=== PATIENT | male | born 1975 | race Caucasian/White ===

== ENCOUNTER 2018-03-02 10:05 | Emergency (ER) | payer OTHER ==
[~2018-03-02] VITALS: Ht 175.3 cm; Wt 94.7 kg
[2018-03-02 10:11] VITALS: TEMP 36.9; Ht 175.3 cm; Wt 94.7 kg
[2018-03-02] MEDS ORDERED: MEDMARIJ INH (10:42)
[2018-03-02] MEDS ORDERED: KETOROLAC TROMETHAMINE 30 MG/ML VIAL IV STA (10:49)
[2018-03-02] MEDS ORDERED: SODIUM CHLORIDE 0.9% 1000ML 1,000 ML IV STA (10:49)
[2018-03-02] MEDS ORDERED: ONDANSETRON INJ 2 MG/ML 2 ML VIAL IV STA (10:49)
--- NOTE | 2018-03-02 11:06 | DIAGNOSTIC IMAGING REPORT ---
CHEST ONE VIEW PORTABLE CLINICAL HISTORY: Abdominal pain. COMPARISON STUDY: Chest radiograph December 27, 2014. FINDINGS: A round metallic density projects over the left hemithorax. This was present on previous exams. No pneumothorax or pleural effusion is noted. There is no evidence for pulmonary edema. Cardiac size is normal. Mediastinal contours are normal. There is no lucency under the hemidiaphragms to suggest pneumoperitoneum. IMPRESSION: No acute cardiopulmonary findings. Electronically signed by: Renato Ramírez M.D. 03/02/2018 11:05 AM Dictated Date/Time: 03/02/2018 11:04 AM
[2018-03-02 11:07] LABS: BASO % 0.3 %; BASO ABS # 0.04 K/uL (0-0.2); EOS % 0.6 %; EOS ABS # 0.09 K/uL (0-0.5); HEMATOCRIT 44.6 % (42-52); HEMOGLOBIN 15.5 g/dL (14.0-18.0); IG# 0.04 K/uL (0.00-0.02); LYMPH % 16.5 %; LYMPH ABS # 2.31 K/uL (1.2-3.4); MEAN CELL VOLUME 87.8 fL (80-100); MEAN CORPUSCULAR HEMOGLOBIN 30.5 pg (25-34); MEAN CORPUSCULAR HGB CONC 34.8 g/dl (32-36); MEAN PLATELET VOLUME 10.3 fL (7.4-10.4); MONO % 9.6 %; MONO ABS # 1.34 K/uL (0.11-0.59); NEUT % 72.7 %; NEUT ABS # 10.15 K/uL (1.4-6.5); PLATELET COUNT 194 K/uL (130-400); RED CELL DISTRIBUTION WIDTH CV 13.5 % (11.5-14.5); RED CELL DISTRIBUTION WIDTH SD 44.2 fL (36.4-46.3); WHITE BLOOD COUNT 13.97 K/uL (4.8-10.8)
[2018-03-02 11:15] LABS: PTT PATIENT 26.4 SECONDS (21.0-31.0)
[2018-03-02 11:21] LABS: CALCIUM 9.2 mg/dl (8.5-10.1); CREATININE 0.87 mg/dl (0.60-1.40); POTASSIUM 3.9 mmol/L (3.5-5.1)
[2018-03-02 11:23] LABS: TOTAL PROTEIN 8.4 gm/dl (6.4-8.2)
--- NOTE | 2018-03-02 11:29 | DIAGNOSTIC IMAGING REPORT ---
ABD/PELVIS WITHOUT FOR STONE HISTORY: 42 years-old Male lower abd pain and inguinal pain acute lower abdominal pain with history of prior right-sided hernia repair COMPARISON: CT abdomen and pelvis 11/11/2014 TECHNIQUE: Multiple axial CT images of the abdomen and pelvis were obtained without the use of IV contrast. A dose lowering technique was used consistent with the principals of LENA. FINDINGS: Minimal dependent subsegmental bibasilar atelectasis. 3 mm solid nodule of the lateral basal segment left lower lobe, unchanged suggesting benign etiology with additional unchanged pleural-based 2 mm nodule seen on image 32 series 3. No pneumatosis or pneumoperitoneum. Imaged inferior cardiac chambers are unremarkable. Hepatomegaly with suggested hepatic steatosis redemonstrated. The gallbladder, spleen, pancreas and adrenal glands are within normal limits. Kidneys, ureters and bladder are unremarkable. Mild atherosclerosis of the aorta without aneurysm. No bulky adenopathy. No small bowel obstruction. Moderate wall thickening of the proximal sigmoid colon with pericolonic inflammatory stranding and trace free pelvic fluid is noted with inflammatory changes centered about an inflamed diverticulum seen on image 349 series 3. No definite evidence of perforation or abscess. There is thickening of the adjacent peritoneal reflection. The appendix appears normal. Prior ventral abdominal wall herniorrhaphy. There are multiple small fat filled supraumbilical hernias about the area of prior repair, largest of which measures 2.2 cm on the right, image 224 series 3. The bones appear intact. Multilevel degenerative changes about the spine. IMPRESSION: 1. Findings compatible with acute uncomplicated sigmoid diverticulitis without evidence of perforation or drainable fluid collection. 2. No bowel obstruction. Normal appendix. 3. Multiple small fat filled supraumbilical ventral abdominal wall hernias The above report was generated using voice recognition software. It may contain grammatical, syntax or spelling errors. Electronically signed by: Neeraj Tanner M.D. 03/02/2018 11:28 AM Dictated Date/Time: 03/02/2018 11:20 AM
--- NOTE | 2018-03-02 12:11 | DIAGNOSTIC IMAGING REPORT ---
SCROTAL ULTRASOUND CLINICAL HISTORY: Left testicular pain. COMPARISON STUDY: Scrotal ultrasound November 11, 2014. TECHNIQUE: Grayscale and color and duplex Doppler sonography of the scrotum was performed. FINDINGS: The right testis measures 5.3 x 2.3 x 3 cm and the left measures 4.9 x 2.1 x 3.2 cm. There is color flow within each testis. There is no evidence for epididymitis. A few tiny right epididymal cysts are noted. IMPRESSION: 1. No evidence for testicular torsion. No testicular mass. 2. No evidence for epididymitis. Electronically signed by: Renato Ramírez M.D. 03/02/2018 12:10 PM Dictated Date/Time: 03/02/2018 12:04 PM
[2018-03-02] MEDS ORDERED: MoRPHine SULFATE 4 MG/ML 1 ML CARP\\VIAL IV STA (12:19)
[2018-03-02] MEDS ORDERED: CIPROFLOXACIN 500 MG TAB PO STA (12:20)
[2018-03-02] MEDS ORDERED: METRONIDAZOLE 250 MG TAB PO STA (12:20)
[2018-03-02] MEDS ORDERED: CIPR-255 PO (12:55)
[2018-03-02] MEDS ORDERED: METR-163 PO (12:55)
--- NOTE | 2018-03-02 12:56 | EMERGENCY ROOM VISIT NOTE ---
History Report prepared by Timo: Lexie Glover Under the Supervision of: Dr. Jeffery Ryan D.O. First contact with patient: 10:35 Chief Complaint: PENIS PAIN Stated Complaint: PAIN IN THE NUTS Nursing Triage Summary: pt reports pelvic pain radiating into testicles and groin. Ongoing since last night. denies injury or trauma. pt reports blood in urine, "I thought maybe I had a kidney stone" History of Present Illness The patient is a 42 year old male who presents to the Emergency Room with complaints of worsening penis plane starting 12 hours ago. The patient states that he believes that he may have a kidney stone because his coworker just had one and it sounds like it feels the same as he described it. He states that the pain comes down his pelvis and into his scrotum. He describes the pain as an aching. He reports that the pain is worse with walking, standing, movement, and touching his testicles. The patient complains of nausea and vomiting from the pain. The patient denies any swelling and any bulges in his pelvic/groin region. The patient notes that his job does require heavy lifting and he has a history of a hernia repair. He reports that sometimes his testicle intermittently "ties up," but comes back down. Source of History: patient Onset: 12 hours ago Position: other (penis) Quality: ache Timing: worsening Modifying Factors (Worsening): movement, other (walking, standing, touching his testicles) Associated Symptoms: + nausea, + vomiting Note: The patient denies any swelling and any bulges in his pelvic/groin region. Review of Systems See HPI for pertinent positives & negatives. A total of 10 systems reviewed and were otherwise negative. Past Medical & Surgical Medical Problems: (1) No Known Active Medical Problems (2) Right hip pain Surgical Problems: (1) Elbow Joint Replacement Status (2) H/O hernia repair Family History Cancer Lung disease Seizures Social History Smoking Status: Current Every Day Smoker Alcohol Use: none Drug Use: none Marital Status: Housing Status: lives with family Occupation Status: employed Current/Historical Medications Scheduled Ciprofloxacin Hcl (Cipro), 500 MG PO BID Marijuana, Home Medication (Marijuana, Home Medication), Unknown Dose INH UD Metronidazole (Flagyl), 500 MG PO TID Allergies Coded Allergies: NO KNOWN DRUG ALLERGIES (Unverified Allergy, Unknown, ., 03/02/18) Oxycodone (Verified Adverse Reaction, Intermediate, DOES NOT WORK, 07/04/15 ) Physical Exam Vital Signs Date Time Temp Pulse Resp B/P (MAP) Pulse Ox O2 Delivery O2 Flow Rate FiO2 03/02/18 13:17 72 18 113/68 97 03/02/18 12:35 76 18 118/64 97 Room Air 03/02/18 12:08 72 18 125/69 98 Room Air 03/02/18 10:11 36.9 80 20 136/82 94 Room Air Physical Exam CONSTITUTIONAL/VITAL SIGNS: Reviewed / noted above. GENERAL: Non-toxic in appearance. INTEGUMENTARY: Warm, dry, and [place]. HEAD: Normocephalic. EYES: without scleral icterus or trauma. ENT/OROPHARYNX: clear and moist. LYMPHADENOPATHY/NECK: Is supple without lymphadenopathy or meningismus. RESPIRATORY: Lungs clear and equal. CARDIOVASCULAR: Regular rate and rhythm. GI/ABDOMEN: Soft. No organomegaly or pulsatile mass. No rebound or guarding. Normal bowel sounds. Bilateral lower abdominal and inguinal tenderness. GROIN: Mild discomfort of the bilateral scrotum, left greater than right. No palpable hernias. EXTREMITIES: Warm and well perfused. BACK: No CVA tenderness. NEUROLOGICAL: Intact without focal deficits. PSYCHIATRIC: normal affect. MUSCULOSKELETAL: Normally developed with good muscle tone. Medical Decision & Procedures ER Provider Diagnostic Interpretation: Radiology results as stated below per my review and radiologist interpretation: CHEST ONE VIEW PORTABLE CLINICAL HISTORY: Abdominal pain. COMPARISON STUDY: Chest radiograph December 27, 2014. FINDINGS: A round metallic density projects over the left hemithorax. This was present on previous exams. No pneumothorax or pleural effusion is noted. There is no evidence for pulmonary edema. Cardiac size is normal. Mediastinal contours are normal. There is no lucency under the hemidiaphragms to suggest pneumoperitoneum. IMPRESSION: No acute cardiopulmonary findings. Electronically signed by: Renato Ramírez M.D. 03/02/2018 11:05 AM Dictated Date/Time: 03/02/2018 11:04 AM ABD/PELVIS WITHOUT FOR STONE HISTORY: 42 years-old Male lower abd pain and inguinal pain acute lower abdominal pain with history of prior right-sided hernia repair COMPARISON: CT abdomen and pelvis 11/11/2014 TECHNIQUE: Multiple axial CT images of the abdomen and pelvis were obtained without the use of IV contrast. A dose lowering technique was used consistent with the principals of LENA. FINDINGS: Minimal dependent subsegmental bibasilar atelectasis. 3 mm solid nodule of the lateral basal segment left lower lobe, unchanged suggesting benign etiology with additional unchanged pleural-based 2 mm nodule seen on image 32 series 3. No pneumatosis or pneumoperitoneum. Imaged inferior cardiac chambers are unremarkable. Hepatomegaly with suggested hepatic steatosis redemonstrated. The gallbladder, spleen, pancreas and adrenal glands are within normal limits. Kidneys, ureters and bladder are unremarkable. Mild atherosclerosis of the aorta without aneurysm. No bulky adenopathy. No small bowel obstruction. Moderate wall thickening of the proximal sigmoid colon with pericolonic inflammatory stranding and trace free pelvic fluid is noted with inflammatory changes centered about an inflamed diverticulum seen on image 349 series 3. No definite evidence of perforation or abscess. There is thickening of the adjacent peritoneal reflection. The appendix appears normal. Prior ventral abdominal wall herniorrhaphy. There are multiple small fat filled supraumbilical hernias about the area of prior repair, largest of which measures 2.2 cm on the right, image 224 series 3. The bones appear intact. Multilevel degenerative changes about the spine. IMPRESSION: 1. Findings compatible with acute uncomplicated sigmoid diverticulitis without evidence of perforation or drainable fluid collection. 2. No bowel obstruction. Normal appendix. 3. Multiple small fat filled supraumbilical ventral abdominal wall hernias The above report was generated using voice recognition software. It may contain grammatical, syntax or spelling errors. Electronically signed by: Neeraj Tanner M.D. 03/02/2018 11:28 AM Dictated Date/Time: 03/02/2018 11:20 AM SCROTAL ULTRASOUND CLINICAL HISTORY: Left testicular pain. COMPARISON STUDY: Scrotal ultrasound November 11, 2014. TECHNIQUE: Grayscale and color and duplex Doppler sonography of the scrotum was performed. FINDINGS: The right testis measures 5.3 x 2.3 x 3 cm and the left measures 4.9 x 2.1 x 3.2 cm. There is color flow within each testis. There is no evidence for epididymitis. A few tiny right epididymal cysts are noted. IMPRESSION: 1. No evidence for testicular torsion. No testicular mass. 2. No evidence for epididymitis. Electronically signed by: Renato Ramírez M.D. 03/02/2018 12:10 PM Dictated Date/Time: 03/02/2018 12:04 PM Laboratory Results 03/02/18 10:35 Red Blood Count 5.08, Mean Corpuscular Volume 87.8, Mean Corpuscular Hemoglobin 30.5, Mean Corpuscular Hemoglobin Concent 34.8, Mean Platelet Volume 10.3, Neutrophils (%) (Auto) 72.7, Lymphocytes (%) (Auto) 16.5, Monocytes (%) (Auto) 9.6, Eosinophils (%) (Auto) 0.6, Basophils (%) (Auto) 0.3, Neutrophils # (Auto) 10.15, Lymphocytes # (Auto) 2.31, Monocytes # (Auto) 1.34, Eosinophils # (Auto) 0.09, Basophils # (Auto) 0.04 03/02/18 10:35 Test 03/02/18 10:30 03/02/18 10:35 Urine Color DK YELLOW Urine Appearance CLEAR (CLEAR) Urine pH 5.5 (4.5-7.5) Urine Specific [place] 1.024 (1.000-1.030) Urine Protein NEG (NEG) Urine Glucose (UA) NEG (NEG) Urine Ketones TRACE (NEG) Urine Occult Blood NEG (NEG) Urine Nitrite NEG (NEG) Urine Bilirubin NEG (NEG) Urine Urobilinogen NEG (NEG) Urine Leukocyte Esterase NEG (NEG) Urine WBC (Auto) 0 /hpf (0-5) Urine RBC (Auto) 0-4 /hpf (0-4) Urine Hyaline Casts (Auto) 0 /lpf (0-5) Urine Epithelial Cells (Auto) 0-5 /lpf (0-5) Urine Bacteria (Auto) NEG (NEG) White Blood Count 13.97 K/uL (4.8-10.8) Red Blood Count 5.08 M/uL (4.7-6.1) Hemoglobin 15.5 g/dL (14.0-18.0) Hematocrit 44.6 % (42-52) Mean Corpuscular Volume 87.8 fL (80-100) Mean Corpuscular Hemoglobin 30.5 pg (25-34) Mean Corpuscular Hemoglobin Concent 34.8 g/dl (32-36) Platelet Count 194 K/uL (130-400) Mean Platelet Volume 10.3 fL (7.4-10.4) Neutrophils (%) (Auto) 72.7 % Lymphocytes (%) (Auto) 16.5 % Monocytes (%) (Auto) 9.6 % Eosinophils (%) (Auto) 0.6 % Basophils (%) (Auto) 0.3 % Neutrophils # (Auto) 10.15 K/uL (1.4-6.5) Lymphocytes # (Auto) 2.31 K/uL (1.2-3.4) Monocytes # (Auto) 1.34 K/uL (0.11-0.59) Eosinophils # (Auto) 0.09 K/uL (0-0.5) Basophils # (Auto) 0.04 K/uL (0-0.2) RDW Standard Deviation 44.2 fL (36.4-46.3) RDW Coefficient of Variation 13.5 % (11.5-14.5) Immature Granulocyte % (Auto) 0.3 % Immature Granulocyte # (Auto) 0.04 K/uL (0.00-0.02) Prothrombin Time 10.3 SECONDS (9.0-12.0) Prothromb Time International Ratio 1.0 (0.9-1.1) Activated Partial Thromboplast Time 26.4 SECONDS (21.0-31.0) Partial Thromboplastin Ratio 1.0 Anion Gap 7.0 mmol/L (3-11) Est Creatinine Clear Calc Drug Dose 123.1 ml/min Estimated GFR () 121.7 Estimated GFR (Non- 105.0 BUN/Creatinine Ratio 11.6 (10-20) Calcium Level 9.2 mg/dl (8.5-10.1) Total Bilirubin 0.8 mg/dl (0.2-1) Direct Bilirubin 0.1 mg/dl (0-0.2) Aspartate Amino Transf (AST/SGOT) 24 U/L (15-37) Alanine Aminotransferase (ALT/SGPT) 37 U/L (12-78) Alkaline Phosphatase 86 U/L (45-117) Total Protein 8.4 gm/dl (6.4-8.2) Albumin 4.0 gm/dl (3.4-5.0) Lipase 107 U/L (73-393) Laboratory results as stated above per my review. Medications Administered Medications (Trade) Dose Ordered Sig/Micheal Route Start Time Stop Time Status Last Admin Dose Admin Sodium Chloride 1,000 ml @ 999 mls/hr Q1H1M STAT IV 03/02/18 10:49 03/02/18 11:49 DC 03/02/18 11:05 999 MLS/HR Ondansetron HCl (Zofran Inj) 4 mg NOW STAT IV 03/02/18 10:49 03/02/18 10:54 DC 03/02/18 11:05 4 MG Ketorolac Tromethamine (Toradol Inj) 30 mg NOW STAT IV 03/02/18 10:49 03/02/18 10:54 DC 03/02/18 11:07 30 MG Morphine Sulfate (MoRPHine SULFATE INJ) 4 mg NOW STAT IV 03/02/18 12:19 03/02/18 12:20 DC 03/02/18 12:37 4 MG Ciprofloxacin (Cipro Tab) 500 mg NOW STAT PO 03/02/18 12:20 03/02/18 12:21 DC 03/02/18 12:35 500 MG Metronidazole (Flagyl Tab) 500 mg NOW STAT PO 03/02/18 12:20 03/02/18 12:21 DC 03/02/18 12:36 500 MG ED Course 1036: Previous medical records were reviewed. The patient was evaluated in room C9. A complete history and physical examination was performed. 1049: Ordered Toradol Inj 30 mg IV, Zofran Inj 4 mg IV, NSS 1000 ml @ 999 mls/ hr IV. 1219: Ordered Morphine Sulfate 4 mg IV. 1220: Ordered Metronidazole 500 mg PO, Cipro Tab 500 mg PO. 1241: On reevaluation, the patient is resting comfortably. I discussed the results and findings with the patient. He verbalized agreement of the treatment plan. The patient was discharged home. Medical Decision Differential considered: pancreatitis, hepatitis, or acute cholecystitis, AAA, UTI, pyelonephritis, kidney stones, appendicitis, diverticulitis, shingles, bowel obstruction mesenteric ischemia, intussusception,hernia, testicular torsion. This is a 42-year-old male who presents to the ED with a chief complaint of lower abdominal pain and testicular pain. The patient states that his symptoms started last night around 10 PM. He reports some nausea but no vomiting. His vital signs are normal. His physical exam revealed tenderness to the lower abdomen as well as the scrotal area. No obvious hernias. No abnormal testicular exam findings other than discomfort. CT scan of the abdomen pelvis reveals acute sigmoid diverticulitis. A chest x-ray was negative for acute disease. Testicular ultrasound was negative for torsion or other abnormality. White blood cell count was 13.9. Urine did not show infection and metabolic panel was unremarkable. The patient was treated with IV fluids, IV Toradol, IV morphine and IV Zofran. He will be discharged on Flagyl and Cipro. He was given his first doses here. He was advised not to drive next 6 hours as he received morphine. He did not want anything for pain going home. Medication Reconcilliation Current Medication List: was personally reviewed by me Blood Pressure Screening Patient's blood pressure: Normal blood pressure Blood pressure disposition: Did not require urgent referral Impression Primary Impression: Diverticulitis Scribe Attestation The scribe's documentation has been prepared under my direction and personally reviewed by me in its entirety. I confirm that the note above accurately reflects all work, treatment, procedures, and medical decision making performed by me. Departure Information Dispostion Home / Self-Care Prescriptions Metronidazole (Flagyl) 500 Mg Tab 500 MG PO TID, #30 TAB Prov: Jeffery Ryan D.O. 03/02/18 Ciprofloxacin Hcl (CIPRO) 500 Mg Tab 500 MG PO BID, #20 TAB Prov: Jeffery Ryan D.O. 03/02/18 Referrals Ihsan Stein D.O. (PCP) Forms HOME CARE DOCUMENTATION FORM, IMPORTANT VISIT INFORMATION, WORK / SCHOOL INSTRUCTIONS Patient Instructions ED Diverticulitis, My [facility] Additional Instructions Cipro and Flagyl as prescribed for diverticulitis infection. Liquid diet for the next 2-3 days until symptoms improve. Advance diet as tolerated. Follow-up with your doctor for further care and evaluation in 1-4 days. Return to the emergency department for worsening or new symptoms or any concerns. You have been examined and treated today on an emergency basis only. This is not a substitute for, or an effort to provide, complete comprehensive medical care. It is impossible to recognize and treat all injuries or illnesses in a single emergency department visit. It is therefore important that you follow up closely with your doctor. Call as soon as possible for an appointment.
[2018-03-02 13:17] VITALS: BP 113/68; PULSE 72; O2SAT 97
== END 2018-03-02 13:19 | disposition home or self-care (01) ==
LOC: C.EDB 10:06 → C.EDC 13:19
DX: K57.92 Diverticulitis of intestine, part unspecified, without perforation or abscess without bleeding (principal); F17.200 Nicotine dependence, unspecified, uncomplicated; Z96.629 Presence of unspecified artificial elbow joint; Z98.890 Other specified postprocedural states; Z82.0 Family history of epilepsy and other diseases of the nervous system